=== PATIENT | female | born 1950 | race Caucasian/White ===

== ENCOUNTER 2022-12-24 10:24 | Outpatient (CLI) | payer MEDICARE, OTHER, SELFPAY ==
--- NOTE | 2022-12-24 10:00 | DI.RAD_ITS ---
Exam(s) XR HIP PELVIS ADULT BL EXAM: XR HIP PELVIS ADULT BL CLINICAL HISTORY: Bilateral hip pain. TECHNIQUE: 2D digital imaging was performed. Three views. COMPARISON: No exams were available for comparison FINDINGS: BONES: No acute fracture is present. No bony destructive lesion is seen. JOINTS: No dislocation present. Mild acetabular spurring. Hip joint spaces are maintained. Mild d egenerative changes of the left SI joint. SOFT TISSUE: 2 material and zenobia in the pelvis. IMPRESSION: Unremarkable mild degenerative changes of the hips and left SI joint. DATA REPOSITORY: RADIATION DOSE DELIVERED:
== END 2022-12-24 10:25 | disposition home or self-care (01) ==
LOC: DIORS 10:24
PROVIDERS: PCP Nurse Practitioner; Referring Provider Nurse Practitioner; Visit Provider Student in an Organized Health Care Education/Training Program
DX: M25.551 Pain in right hip (principal); M25.552 Pain in left hip; M70.61 Trochanteric bursitis, right hip; M70.62 Trochanteric bursitis, left hip; M54.9 Dorsalgia, unspecified
CPT/HCPCS: 73521; 99204

== ENCOUNTER 2023-01-10 09:50 | Day surgery (SDC) | payer MEDICARE, OTHER, SELFPAY ==
[2023-01-10] VITALS (9 sets, daily range): BP systolic 99–139; BP diastolic 49–77; PULSE 60–70; RESP 16–21; TEMP 36.3–36.6; O2SAT 95–99; BMI 39.9
--- NOTE | 2023-01-10 07:13 | W.PM.DSUDISC ---
Date of service: 01/10/23 Time of Service: 16:00 Discharge Plan Disposition Patient Disposition: Home Condition: Stable Discharge Details Attending Provider: Gerald Mcconnell Primary Care Provider: Melanie Pineda Home Meds and New Rx's Prescriptions: New naproxen 250 mg tablet 250 - 500 mg PO BID PRNQty: 40 0RF Rx Instructions: take with a meal aspirin 81 mg tablet,delayed release (DR/EC) 81 mg PO DAILY 14 Days Qty: 14 0RF Continued ipratropium-albuterol 0.5 mg-3 mg(2.5 mg base)/3 mL solution for nebulization 3 ml inhalation Q6H PRN montelukast 10 mg tablet 10 mg PO DAILY sumatriptan succinate 6 mg/0.5 mL cartridge 6 mg subcut Q1-4H PRN Rx Instructions: do not exceed 2 doses in a 24 hour period triamcinolone acetonide 0.1 % cream 1 applic topical TID albuterol sulfate [Ventolin HFA] 90 mcg/actuation HFA aerosol inhaler 2 puff inhalation Q6H PRN Stiolto Respimat 2.5-2.5 mcg/actuation mist 2 puff inhalation DAILY oxycodone 15 mg tablet 15 mg PO QID PRN valacyclovir 1 gram tablet 1,000 mg PO DAILY tizanidine 4 mg capsule 4 mg PO TID PRN Discharge Instructions Additional Instructions: Surgery: Bilateral hip endoscopy with iliotibial band release and trochanteric bursectomy Activity: Weightbearing as tolerated. May use crutches or walker as needed for a few days. Gradually advance to full range of motion and activity over the next few weeks. A physical therapy prescription will be provided separately in the office at follow up if needed. Prescriptions: Aspirin 81 mg take 1 daily to prevent a blood clot for 2 weeks Naproxen 250 mg take 1-2 every 12 hours with a meal as needed for moderate pain home oxycodone prescription for severe pain You may use [id number] Tylenol (acetaminophen) as needed for mild pain. These pain medications may be taken all at once or in different combinations as needed. Also, recommend Colace (docusate) as a stool softener as surgery and pain medicine cause constipation. You may try [id number] diphenhydramine (Benadryl) 25-50 mg nightly as a sleep aid Dressings: Leave dressings in place for 3 days. May then remove and leave open to air or cover incisions with Band-Aids. If they become wet, remove and replace with dry gauze and tape. Leave the sticky Steri-Strips in place until they fall off or remove them after you shower. May shower after 5 days. Follow-up: 10-[address] Mcconnell You may take off the leg compression stockings this evening at home. You may also leave them on a few days longer if you have a history of leg swelling or edema. Let us know right away if you develop any redness, drainage, fevers, chest pain, or trouble breathing. Do not drink alcohol or drive for at least 24 hours after anesthesia. Please call the office during business hours with any questions or concerns. Discharge Orders Discharge Orders: Discharge Order (Routine); Ordered 01/10/23 Ordered By: Amanda Calvo DS: Diagnosis Discharge Diagnosis (1) Trochanteric bursitis of both hips: Status: Acute
[2023-01-10] MEDS: Lactated Ringers 1,000 ML 30 ML IV (11:34)
--- NOTE | 2023-01-10 12:59 | W.PM.OP ---
Date of service: 01/10/23 Time of Service: 13:30 Operative Note Operative Note DATE OF PROCEDURE: 01/10/23 PRE-OP DIAGNOSIS: Right hip 1. Iliotibial band syndrome 2. Trochanteric bursitis Left hip 1. Iliotibial band syndrome 2. Trochanteric bursitis POST-OP DIAGNOSIS: same PROCEDURE: Right hip endoscopic 1. Iiliotibial band release, CPT# 42308 2. Trochanteric bursectomy, CPT# 63932 Left hip endoscopic 1. Iiliotibial band release, CPT# 84251 2. Trochanteric bursectomy, CPT# 47557 SURGEON: Gerald Mcconnell ORDER PACKER OR PACKAGER: Amanda Calvo ANESTHESIA TYPE: Local By Surgeon and General LMA/ETT Refer to Anesthesia Record ESTIMATED BLOOD LOSS: 5 COMPLICATIONS: None Patient was transported to: PACU Patient's condition: stable Indications: Please see complete medical record for details. Findings: Right: Thin frayed iliotibial band. Significantly inflamed abundant trochanteric bursitis. Intact gluteal tendons. Left: Moderately thickened and taut iliotibial band. Only moderately inflamed trochanteric bursitis. Intact gluteal tendons Procedure Description: In the operating room, general anesthesia was induced. The patient was positioned supine on the [place] operating room table. All bony prominences were well-padded. Preoperative antibiotics were administered. The Right hip was prepped and draped in the usual sterile fashion. The correct patient, procedure, and sides of the procedures were all verified prior to incision. 30 cc of 0.25% bupivacaine containing epinephrine was infiltrated about the subcutaneous tissues for the planned anterior lateral and distal anterolateral portals as well as deeply over the greater trochanter. A knife was used to incise the skin for the anterior lateral and distal anterolateral portals followed by blunt dissection subcutaneously. Under fluoroscopic guidance, a switching stick and arthroscope were inserted localizing the iliotibial band over the greater trochanter. Blunt dissection and the mechanical shaver were used to resect fat and overlying tissue about the center of the iliotibial band and carefully expose the anterior and posterior margins. Once there was adequate exposure of the IT band, the greater trochanter was again localized under fluoroscopic guidance with a spinal needle inserted through the skin down to bone. This central area was marked using the radiofrequency ablator and then used to 2 cm longitudinal incision in line with the IT band fibers as well as extending it in a cruciate fashion with 2 cm incisions anteriorly and posteriorly. The radiofrequency ablator was used to achieve hemostasis. The mechanical shaver was then used to debride the IT band released edges exposing the trochanteric bursa. The mechanical shaver was then used to excise the trochanteric bursa taking care to protect musculature about the margins of the greater trochanter as well as neurovascular structures especially posteriorly. There was excellent visualization of the vastus lateralis as well as gluteus medius confirming appropriate bursa excision. The hip was brought through range of motion including internal and external rotation and there was no impinging iliotibial band tissue or remaining pathologic bursa. The viewing and working portals were switched and appropriate IT band release, trochanteric bursa excision, and hemostasis confirmed. Suction was used to remove fluid from the endoscopic space. The portals were closed using 3-0 Monocryl in a buried fashion. Steri-Strips were applied over the incisions followed by Xeroform, 4 x 4 gauze, an ABD pad, and secured with tape. The Left hip was then prepped and draped in the usual sterile fashion. 30 cc of 0.25% bupivacaine containing epinephrine was infiltrated about the subcutaneous tissues for the planned anterior lateral and distal anterolateral portals as well as deeply over the greater trochanter. A knife was used to incise the skin for the anterior lateral and distal anterolateral portals followed by blunt dissection subcutaneously. Under fluoroscopic guidance, a switching stick and arthroscope were inserted localizing the iliotibial band over the greater trochanter. Blunt dissection and the mechanical shaver were used to resect fat and overlying tissue about the center of the iliotibial band and carefully expose the anterior and posterior margins. Once there was adequate exposure of the IT band, the greater trochanter was again localized under fluoroscopic guidance with a spinal needle inserted through the skin down to bone. This central area was marked using the radiofrequency ablator and then used to create a 2 cm longitudinal incision in line with the IT band fibers as well as extending it in a cruciate fashion with 2 cm incisions anteriorly and posteriorly. The radiofrequency ablator was used to achieve hemostasis. The mechanical shaver was then used to debride the IT band released edges exposing the trochanteric bursa. The mechanical shaver was then used to excise the trochanteric bursa taking care to protect musculature about the margins of the greater trochanter as well as neurovascular structures especially posteriorly. There was excellent visualization of the vastus lateralis as well as gluteus medius confirming appropriate bursa excision. The hip was brought through range of motion including internal and external rotation and there was no impinging iliotibial band tissue or remaining pathologic bursa. The viewing and working portals were switched and appropriate IT band release, trochanteric bursa excision, and hemostasis confirmed. Suction was used to remove fluid from the endoscopic space. The portals were closed using 3-0 Monocryl in a buried fashion. Steri-Strips were applied over the incisions followed by Xeroform, 4 x 4 gauze, an ABD pad, and secured with tape. The patient awoke from anesthesia without complication and was transferred to the recovery room in a stable condition.
--- NOTE | 2023-01-10 13:15 | DI.RAD_ITS ---
Exam(s) XR HIP RT IN OR EXAM: XR HIP RT IN OR CLINICAL HISTORY: TROCHANTERIC BURSITIS OF RIGHT HIP. TECHNIQUE: 2D digital imaging was performed. COMPARISON: No exams were available for comparison FINDINGS: Fluoroscopy provided during procedure on right hip intertrochanteric region. See procedure report fo r details. Total fluoroscopy time 9 seconds IMPRESSION: Radiation exposure/cumulative dose: tracy Love= 2.59mGY DATA REPOSITORY: RADIATION DOSE DELIVERED:
--- NOTE | 2023-01-10 13:15 | DI.RAD_ITS ---
Exam(s) XR HIP LT IN OR EXAM: XR HIP LT IN OR CLINICAL HISTORY: TROCHANTERIC BURSITIS OF LEFT HIP. TECHNIQUE: 2D digital imaging was performed. COMPARISON: No exams were available for comparison FINDINGS: Fluoroscopy fried during orthopedic procedure left hip intertrochanteric bursa region See procedure report for details. Total fluoroscopy time 5 seconds IMPRESSION: Radiation exposure index/cumulative dose: Ka,r= 0.76 mGy DATA REPOSITORY: RADIATION DOSE DELIVERED:
[2023-01-10] MEDS: ACETAMINOPHEN 1,000 MG/100 ML BTL 400 MG IVPB (13:43)
--- NOTE | 2023-01-10 13:49 | ANES.PREOP_ITS ---
General Info Date of Service Date Performed: 01/10/23 Height: 5 ft 7 in Weight: 115.7 kg Body Mass Index (BMI): 39.9 Surgical Procedure: Operation Date: 01/10/23 13:20 Proposed Procedure Side Surgeon p Endoscopic Iliotibial Band Release w/Trochanteric Bursectomy & Possible Gluteal Tendon Repair Bilateral Gerald Mcconnell MD Meds Allergies and Home Medications Allergies Allergy/AdvReac Type Severity Reaction Status Date / Time aspirin Allergy Unknown Other (See Verified 01/10/23 10:57 Comment) ciprofloxacin Allergy Unknown Other (See Verified 01/10/23 10:57 Comment) gabapentin Allergy Unknown Other (See Verified 01/10/23 10:57 Comment) rofecoxib [From Vioxx] Allergy Unknown Other (See Verified 01/10/23 10:57 Comment) trazodone Allergy Unknown Other (See Verified 01/10/23 10:57 Comment) zolpidem AdvReac Intermediate Other (See Verified 01/10/23 10:57 Comment) divalproex sodium AdvReac Mild Headache Verified 01/10/23 10:57 [From Depakote] sulfamethoxazole AdvReac Mild Headache Verified 01/10/23 10:57 [From Bactrim] trimethoprim [From Bactrim] AdvReac Mild Headache Verified 01/10/23 10:57 Home Medication Medication Instructions Recorded albuterol sulfate 90 mcg/actuation 2 puff inhalation Q6H PRN 12/12/22 aerosol inhaler (Ventolin HFA) ipratropium 0.5 mg-albuterol 3 mg 3 ml inhalation Q6H PRN 12/12/22 (2.5 mg base)/3 mL nebulization soln montelukast 10 mg tablet 10 mg PO DAILY 12/12/22 oxycodone 15 mg tablet 15 mg PO QID PRN 12/12/22 sumatriptan succinate 6 mg/0.5 mL 6 mg subcut Q1-4H PRN 12/12/22 subcutaneous cartridge (refill) tiotropium 2.5 mcg-olodaterol 2.5 2 puff inhalation DAILY 12/12/22 mcg/actuation mist for inhalation (Stiolto Respimat) tizanidine 4 mg capsule 4 mg PO TID PRN 12/12/22 triamcinolone acetonide 0.1 % 1 applic topical TID 12/12/22 topical cream valacyclovir 1 gram tablet 1,000 mg PO DAILY 12/12/22 aspirin 81 mg tablet,delayed 81 mg PO DAILY Prevent blood clot 01/10/23 release 14 days #14 tabs naproxen 250 mg tablet 250 - 500 mg (1 - 2 x 250 mg) PO 01/10/23 BID PRN #40 tabs Current Visit Medications: Current Medications Generic Name Dose Route Start Last Admin Trade Name Ellie PRN Reason Stop Dose Admin Cefazolin Sodium 3,000 mg/ 100 mls @ 200 mls/hr 01/10/23 06:00 Sodium Chloride IVPB 01/10/23 18:00 PREOP JEANETTE Ringer's Solution 1,000 mls @ 30 mls/hr 01/10/23 06:00 01/10/23 11:34 IV 02/08/23 23:59 30 mls/hr INFUSION JEANETTE Administration IV Miscellaneous Supplies 1 each 01/10/23 06:00 Iv Access IV 02/08/23 23:59 DIRECTED JEANETTE Naloxone HCl 0 mg 01/10/23 13:17 Naloxone 0.4 Mg/Ml Vial IVP 02/09/23 13:16 PRN PRN Oxycodone HCl 0 mg 01/10/23 07:24 Oxycodone 5 Mg Tab PO 02/09/23 07:23 Q3H PRN PRN Pain Scopolamine HBr 1 mg 01/10/23 13:37 Scopolamine 1 Mg/3 Days Patch TD 01/10/23 13:38 NOW ONE Sodium Chloride 0 ml 01/10/23 06:00 Normal Saline Flush 10 Ml Syr IV 02/08/23 23:59 PRN PRN Sodium Chloride 0 ml 01/10/23 06:00 Normal Saline 10 Ml Vial IJ 02/08/23 23:59 DIRECTED PRN Sterile Water 0 ml 01/10/23 06:00 Water,Injection,Sterile 10 Ml Vial IJ 02/08/23 23:59 DIRECTED PRN PFSH Active Problems Active Problems: Problem Status Onset Code Trochanteric bursitis of both hips M70.61, M70.62 Active asthma J45.909 Sleep apnea G47.30 Obesity E66.9 Glaucoma H40.9 DDD (degenerative disc disease), lumbosacral M51.37 Neuropathy G62.9 Chronic pain G89.29 Allergic rhinitis J30.9 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 states she had a colonoscopy in [place] and woke up in ICU, then transferred down to [place] was told she needed a pacemaker, found out she actually never needed it. States she has had surgery since then no isses Surgical History Surgical History (Updated 01/10/23 @ 11:50 by Randi Berkowitz) H/O shoulder surgery Left Hx of breast reduction, elective History of total knee arthroplasty Left H/O hysterectomy for benign disease Tobacco Smoking/Tobacco Use Status: Never Alcohol Alcohol Intake: former Substance Use Substance use: Never Substance use type: does not use Vital Signs and Lab Results Vital Signs Most Recent Vital Signs in EMR: Most Recent Vital Signs Temp Pulse Resp BP Pulse Ox 36.3 C L 70 16 125/77 96 01/10/23 11:06 01/10/23 11:06 01/10/23 11:06 01/10/23 11:06 01/10/23 11:06 Lab Results Blood Type / Crossmatch: No Data to Display Complete Blood Count: No Data to Display Complete Metabolic Panel: No Data to Display Liver Function Panel: No Data to Display Coagulation Panel: No Data to Display Cardiac Panel: No Data to Display Arterial Blood Gas: No Data to Display Venous Blood Gas: No Data to Display Pancreas Panel: No Data to Display Thyroid Panel: No Data to Display Infectious Disease: No Data to Display Blood Cultures: No Data to Display Toxicology Panel: No Data to Display Anesthesia Assessment and Plan Anesthesia History Personal History: PONV and Other Family History: No Family History of Anesthesia Complications Exercise Tolerance Exercise Tolerance: Metabolic Equivalents>4 Pertinent Negatives Pertinent Negatives: No Symptoms of GERD, No Major Cardiovascular Symptoms or Complaints and No History of CVA/TIA Cardiac & Pulmonary Exam Cardiac Exam: Normal S1/S2 Heart Sounds Pulmonary Exam: Clear Bilateral Breath Sounds and Active Dry Cough Implantable Cardiac Device Does patient have a Pacemaker or an ICD?: No Airway Exam Known Difficult Airway: No Mallampati Class: 2 Mouth Opening: Normal (> 3cm) Thyromental Distance: Greater than 3 cm Neck Range of Motion: Full ROM Neck Circumference: Normal Teeth Condition: Removable Dentures/Plates Upper, Removable Dentures/Plates Lower and Edentulous ASA Classification ASA Score: ASA 3 Emergency Case?: No NPO Status NPO Status: NPO Clears >2 hours, Solids >8 hours Anesthesia Plan Resuscitation Status: Full Code Anesthesia Technique: General Anesthesia Airway Planned: Endotracheal Tube Monitors Used: Standard Monitors
[2023-01-10] MEDS: ceFAZolin 3,000 MG in Normal Saline 100 ML 200 MG IVPB (14:08)
[2023-01-10] MEDS: Bupivacaine 0.25% Pres-Free 30 ML VIAL (15:47)
[2023-01-10] MEDS: EPINEPHrine 10 MG/10 ML ML (15:48)
[2023-01-10] MEDS: fentaNYL 100 MCG/2 ML VIAL IVP ×2 (16:06→16:15)
[2023-01-10] MEDS: HYDROmorphone 2 MG/ML SYR IVP ×2 (16:24→16:37)
[2023-01-10] MEDS: oxyCODONE 5 MG TAB PO (16:41)
--- NOTE | 2023-01-10 17:07 | W.ANESPOSTOP ---
Postoperative Evaluation Date, Time and Location Date Performed: 01/10/23 Time Performed: 17:07 Patient Location: Day Surgery Unit Vital Signs Most Recent Imported Vital Signs: Most Recent Vital Signs Temp Pulse Resp BP Pulse Ox 36.5 C 60 21 99/68 L 99 01/10/23 16:45 01/10/23 16:45 01/10/23 16:45 01/10/23 16:45 01/10/23 16:45 Pain Score Most Recent Pain Score: Most Recent Pain Score Pain Level 0 01/10/23 16:45 Assessment Mental Status: Awake (Alert & Oriented to Patient Baseline) Airway and Respiratory Function: Patent airway with normal (patient baseline) respiratory exam Cardiovascular Function: Hemodynamically Stable Hydration Status: Adequately Hydrated Nausea & Vomiting: No Nausea or Vomiting Pain: Pain is tolerable per patient Peripheral Nerve Block: Patient did not receive a nerve block
== END 2023-01-10 18:00 | disposition home or self-care (01) ==
PROVIDERS: PCP Nurse Practitioner; Visit Provider Student in an Organized Health Care Education/Training Program
PROC: (CPT 29863; principal; 2023-01-10 13:00)
DX: M70.61 Trochanteric bursitis, right hip (principal); M76.31 Iliotibial band syndrome, right leg; S76.011A Strain of muscle, fascia and tendon of right hip, initial encounter; X58.XXXA Exposure to other specified factors, initial encounter
CPT/HCPCS: 27062; 27305; 27006; 73501; J0131; J0690; J1100; J1170; J1885; J2001; J2250; J2371; J2405; J2704; J3010

== ENCOUNTER → 2023-01-29 10:53 | Outpatient (BNVA) | payer MEDICARE, OTHER, SELFPAY | PROVIDERS: PCP Nurse Practitioner; Referring Provider Nurse Practitioner; Visit Provider Student in an Organized Health Care Education/Training Program | DX: Z47.89 Encounter for other orthopedic aftercare (principal); M70.61 Trochanteric bursitis, right hip; M70.62 Trochanteric bursitis, left hip ==

== ENCOUNTER → 2023-10-17 00:35 | Outpatient (CLI) | payer MEDICARE, OTHER, SELFPAY ==
[2023-10-17] MEDS: Barium Sulfate 98% W/W 140 ML BTL PO (10:49)
[2023-10-17] MEDS: Barium Sulfate 60% W/V 355 ML BTL PO (10:49)
--- NOTE | 2023-10-17 10:50 | DI.RAD_ITS ---
Exam(s) RF BARIUM SWALLOW EXAM: RF BARIUM SWALLOW CLINICAL HISTORY: COUGH, R05.9 TECHNIQUE: 2D and realtime digital imaging was performed. CONTRAST MATERIAL: Oral barium contrast was administered. COMPARISON: No exams were available for comparison FINDINGS: CHEST X-RAY: The heart and pulmonary vasculature are within normal limits. The lungs are clear. No pl eural effusion or pneumothorax is present. The bones are within normal limits for the patient's age. ESOPHAGRAM: The esophagus is patent with no evidence for erosions, fold thickening, strictures, or ma sses. There is no gastroesophageal reflux noted on the examination. Barium tablet passed into the [facility]. There is no evidence of a hiatal hernia. IMPRESSION: No evidence of gastroesophageal reflux, stricture or erosion. RADIATION DOSE DELIVERED: tracy Love=37 mGy
== END ==
PROVIDERS: PCP Nurse Practitioner; Visit Provider Nurse Practitioner
DX: R05.9 Cough, unspecified (principal)
CPT/HCPCS: 74221; J3490